=== PATIENT | female | born 1980 | race Caucasian/White ===

== ENCOUNTER 2019-03-20 14:50 | Emergency (ER) | payer MEDICARE, MEDICAID, SELFPAY ==
[2019-03-20 15:04] VITALS: BP 125/84; PULSE 72; RESP 16; TEMP 36.7; O2SAT 99
--- NOTE | 2019-03-20 15:09 | ED.GENADUL_ITS ---
Discharge Plan Disposition Patient Disposition: HOME Condition: Good Discharge Details Chief Complaint: RashLesion Clinical Impression: Tinea Primary Care Provider: PHILIPPE SPIVEY ED Provider: Obie Causey Home Meds and New Rx's Prescriptions: New clotrimazole-betamethasone [Lotrisone] 1-0.05 % cream 1 applic TP BID 14 Days Qty: 15 RF: 0 Discharge Instructions Instructions: Skin Yeast Infection (ED) Additional Instructions: Please keep the area under your breast aerated as much as possible. Apply the cream twice daily. Make sure if you are wearing a bra or strap that it is breathable. Please drink 10 to 12 cups of water per day to avoid any dehydration if you notice any worsening of your symptoms, or any new symptoms such as vomiting, diarrhea, fever, chills, shortness of breath, chest pain, numbness, weakness, or fainting , please return immediately to the emergency department for reevaluation. Please follow up with your primary care provider as soon as possible for reassessment and reevaluation. As always, it was a pleasure participating in your medical care today. Stand Alone Forms: Work Release Referrals: PHILIPPE SPIVEY [Primary Care Provider] - Medical Decision Making This is a very pleasant 38-year-old female who presents today for evaluation of rash underneath her breasts bilaterally. 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 Rashes been present for the last week. Signs and symptoms appear clinically consistent with bilateral yeast infection underneath her breast secondary to a moist environment. No concerning physical exam or historical red flags of HIV, diabetes, or other significant rash findings. Signs and symptoms are clinically consistent with a yeast infection. Because of the note ability of the rash we will prescribe a accommodation cream with both steroid and antifungal components. Recommend breathable clothing. Recommend close follow-up with PCP. Discussed lifestyle modifications. I have extensively reviewed the treatment plan and discharge instructions with the patient. I have addressed all patient concerns at this time. The patient was made aware of what symptoms to monitor for that would warrant a return to the emergency department. Discussed the plan with the patient, they demonstrate verbal understanding and agreement with our assessment and plan at this time. HPI General Date/Time Provider Initiated Documentation: 03/20/19 15:07 . HPI Narrative: This is a pleasant 38-year-old female who presents today for evaluation of rash underneath her breasts bilaterally. 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 She has noticed this rash for the last week. It is cause mild to moderate itchiness and irritation. Today she noticed a small amount of blood came into be checked out. Aside for this rash she denies any other complaints. No new medications soaps or washes. She denies any oral lesions. She denies any recent antibiotics or new medications. No other complaints at this time. Nothing improves or worsens her symptoms. She denies any history of HIV. She does not have diabetes Related Data Home Medications Medication Instructions Recorded Confirmed clotrimazole-betamethasone 1 applic TP BID 14 Days #15 gm 03/20/19 [Lotrisone] Previous Rx's Medication Instructions Recorded clotrimazole-betamethasone 1 applic TP BID 14 Days #15 gm 03/20/19 [Lotrisone] Allergies Allergy/AdvReac Type Severity Reaction Status Date / Time No Known Allergies Allergy Unverified 03/20/19 15:10 Review of Systems Review of Systems All systems reviewed & are unremarkable except as noted in HPI and below PFSH Social History Smoking/Tobacco Use Status: Never Alcohol Intake: never Drug use: Occasionally Substance use type: marijuana Do you feel safe at home: Yes Do you feel safe in your relationship?: Yes Exam Narrative Exam Narrative: 1.Const: Well-nourished, Well-developed, appearing stated age 2.Eyes: PERRL, no conjunctival injection, and symmetrical lids. 3.ENT: Atraumatic external nose and ears. Moist MM. Neck: Symmetric, trachea midline, No thyromegaly. 4.CVS: +S1/S2, No murmurs or gallops. Peripheral pulses 2+ and equal in all extremities. Brisk capillary refill in all extremities. 5.RESP: Unlabored respiratory effort. Clear to auscultation bilaterally. No wheezes rales or rhonchi 6.GI: Soft, Nontender/Nondistended, No hepatosplenomegaly. No guarding or krishna ound. 7.MSK: Normocephalic/Atraumatic, Extremities w/o deformity or ttp No cyanosis or clubbing, Normal movement of all extremities 8.Skin: Warm, mild erythema under both breasts bilaterally with notable skin irritation, notable redness that blanches well. Clinically consistent with topical yeast infection. Negative Nikolsky sign. No large vesicles or bulla. No palpable purpura. No oral lesions. No mucosal lesions. No evidence of severe cellulitis. No evidence of vaccine preventable rash. 9.Neuro: lump roller II-XII grossly intact. Sensation grossly intact, no focal neurologic deficits. 10.Psych: (AAO) x3. Appropriate mood and affect
== END 2019-03-20 15:23 | disposition home or self-care (01) ==
LOC: ER 15:59
PROVIDERS: Emergency Provider Student in an Organized Health Care Education/Training Program; PCP Nurse Practitioner Family
DX: B35.4 Tinea corporis (principal)
CPT/HCPCS: 99283

== ENCOUNTER 2019-08-10 14:46 | Emergency (ER) | payer MEDICARE, MEDICAID, SELFPAY ==
[2019-08-10] VITALS (10 sets, daily range): BP systolic 120–147; BP diastolic 91–92; PULSE 76–89; RESP 4–31; TEMP 36.6; O2SAT 95–97
--- NOTE | 2019-08-10 15:02 | ED.GENADUL_ITS ---
Discharge Plan Disposition Patient Disposition: HOME Condition: Stable Discharge Details Chief Complaint: Chest Pain Clinical Impression: Bronchitis Primary Care Provider: Nichelle Bennett ED Provider: Manuel Marte Home Meds and New Rx's Prescriptions: New azithromycin 250 mg tablet See Rx Instructions .ROUTE .COMPLEX Qty: 6 RF: 0 Discharge Instructions Instructions: Acute Bronchitis (ED) Additional Instructions: Small, frequent sips of fluids to maintain hydration. Take antibiotics as prescribed. You may liberalize potassium containing foods in the diet such as bananas, strawberries, tree nuts like cashews or almonds. Return to the emergency department for any acute concerns. Medical Decision Making 38-year-old female presents from home complaining of 7 days of cough with congestion, developed left anterior chest discomfort this morning. It is reproducible on exam. States his been under a great deal of stress due to her 's incarceration. Her vital signs are within normal limits. Differential diagnosis is broad, and the patient placed on a athletic monitor, screening laboratories, EKG, chest x- ray obtained. Patient is noted to have potassium of 3.1 and mild anion gap acidosis. I attribute this to her decreased p.o. intake. She is given supplemental potassium in the ED. her troponin and d-dimer are within normal limits, chest x- ray is unremarkable for acute process and no consolidation. She has had a persistent cough, she certainly may have a component of bronchitis now treated with a course of azithromycin. She is stable and appropriate for discharge home at this time. ECG Data Attestation: I personally reviewed and interpreted this ECG (s) as follows: Interpretation: Normal sinus rhythm, rate of 72, the QRS is narrow. HPI General Mode of arrival: ambulatory . Date/Time Provider Initiated Documentation: 08/10/19 14:47 . Limitations to Documentation: no limitations . Information obtained by: patient . History of Present Illness 38 year old F presents to the emergency department with the chief complaint of Left chest discomfort, cough, stressed out, described as mild, and is localized to the chest and left. Patient reports no radiation. Patient started experiencing this hour(s) and it has been constant. No relieving factors improve symptom(s), No exacerbating factors reported . Patient notes cough and loss of appetite. Patient did receive the following treatments prior to arrival, none Related Data Home Medications Medication Instructions Recorded Confirmed azithromycin See Rx Instructions .ROUTE 08/10/19 .COMPLEX #6 tab Previous Rx's Medication Instructions Recorded azithromycin See Rx Instructions .ROUTE 08/10/19 .COMPLEX #6 tab Allergies Allergy/AdvReac Type Severity Reaction Status Date / Time No Known Allergies Allergy Unverified 03/20/19 15:10 General Stated Complaint: Chest Pain YEHUDA: 2 Review of Systems Narrative: No recent travel, denies lower extremity pain or swelling, endorses significant stress due to her being in longterm. [facility] Social History Smoking/Tobacco Use Status: Never Alcohol Intake: current Alcohol Intake frequency: a few times a week Drug use: Occasionally Substance use type: marijuana Do you feel safe at home: Yes Do you feel safe in your relationship?: Yes Exam Narrative Exam Narrative: GEN: awake, alert, oriented 3. Pleasant, well groomed, interactive. HEAD: Normocephalic, atraumatic ENT: Mucous membranes moist, oropharynx unremarkable, External ear exam unremarkable EYES: PERRL, EOMI NECK: Full ROM, no ADRIANNE, no menigismus CHEST/RESP: Left anterior chest tender to palpation, no rash, clear to auscultation bilateral, no wheeze/rhonchi/rales CARDIOVASCULAR: RRR, no murmur, rub chani. 2+ Rad pulse bilateral ABDOMEN: Soft, nontender, no mass. +Bowel sounds EXT: Full ROM, no edema, no rash Neuro: Grossly normal neurologic exam, conversant, interactive. Psych: Speech fluent, thoughts congruent, affect anxious Course Vital Signs Vital signs: Vital Signs Temperature 36.6 C 08/10/19 14:51 Pulse 82 08/10/19 14:51 Respiratory Rate 31 H 08/10/19 14:51 Blood Pressure 147/92 H 08/10/19 14:51 Pulse Oximetry 97 08/10/19 14:51 Temperature 36.6 C 08/10/19 14:51 Temperature Source Skin 08/10/19 14:51 Pulse 82 08/10/19 14:51 Respiratory Rate 31 H 08/10/19 14:51 Blood Pressure 147/92 H 08/10/19 14:51 Blood Pressure Position Sitting 08/10/19 14:51 Pulse Oximetry 97 08/10/19 14:51 Oxygen Delivery Method Room Air 08/10/19 14:51 Oxygen Flow Rate 0 08/10/19 14:51 Pain Level 4 08/10/19 14:51
[2019-08-10 15:15] LABS: Abs Immature Grans 0.01 k/cumm (0.0-0.09); Absolute Basophil Count 0.02 k/cumm (0.0-0.2); Absolute Eosinophil Count 0.12 k/cumm (0.0-0.7); Absolute Lymphocyte Count 1.69 k/cumm (1.2-3.4); Absolute Monocyte Count 0.63 k/cumm (0.11-0.7); Absolute Neutrophil Count 4.25 k/cumm (1.2-6.7); Basophils % 0.3; Eosinophils % 1.8; HCT 37.8 % (36.0-46.0); HGB 13.8 g/dL (12.0-15.5); Immature Grans % 0.1 %; Lymphocytes % 25.1; Mean Corp. HGB Concentration 36.5 g/dL (32.0-36.0); Mean Corpuscular Hemoglobin 32.3 pg (27.0-33.0); Mean Corpuscular Volume 88.5 fL (80-95); Mean Platelet Volume 9.2 fL (8.0-11.0); Monocytes % 9.4; Neutrophils % 63.3; Platelet Count 368 x1000/uL (130-400); RBC 4.27 m/cumm (4.00-5.20); White Blood Cell Count 6.72 k/cumm (4.4-10.8)
--- NOTE | 2019-08-10 15:23 | DI.RAD_ITS ---
EXAM: XR CHEST 2V PA LATERAL CLINICAL HISTORY: Cough and left chest pain TECHNIQUE: COMPARISON: No exams were available for comparison FINDINGS: Note is made of Cullen rods of the thoracolumbar region. Cardiac size is within normal limits. The lungs are clear and well expanded. No pleural effusion or pneumothorax. IMPRESSION: No evidence of acute intrapulmonary process.
[2019-08-10 15:31] LABS: ALT 30 U/L (14-59); AST 25 U/L (15-37); Albumin 3.8 g/dL (3.4-5.0); Alkaline Phosphatase 70 U/L (46-116); Anion Gap 16.4 mmol/L (3-11); BUN 4 mg/dL (7-18); Bilirubin, Total 0.9 mg/dL (0.2-1.0); CO2 19.6 mmol/L (21.0-32.0); CREATININE 0.64 mg/dL (0.55-1.02); Chloride 105 mmol/L (98-107); Glucose 101 mg/dL (74-106); Magnesium 2.2 mg/dL (1.8-2.4); Potassium 3.1 mmol/L (3.5-5.1); Sodium 141 mmol/L (136-145); Total Protein 8.1 g/dL (6.4-8.2)
[2019-08-10 15:48] LABS: Troponin I < 0.05 ng/Ml (<0.06)
[2019-08-10] MEDS: Normal Saline Flush 10 ML SYR IVP (15:50)
[2019-08-10 15:51] LABS: D-Dimer 397 ng/mlFEU (<500)
[2019-08-10] MEDS: Potassium Chloride 20 MEQ TABCR PO (16:06)
== END 2019-08-10 16:29 | disposition home or self-care (01) ==
PROVIDERS: Emergency Provider Emergency Medicine; PCP Nurse Practitioner Family
DX: J20.9 Acute bronchitis, unspecified (principal); E87.6 Hypokalemia; Z63.32 Other absence of family member
CPT/HCPCS: 36415; 80053; 93005; 99285; 71046; 83735; 84484; 85025; 85379; 93010; 99284

== ENCOUNTER 2020-05-04 14:35 | Emergency (ER) | payer MEDICARE, MEDICAID, SELFPAY ==
[2020-05-04] VITALS (27 sets, daily range): BP systolic 120–142; BP diastolic 68–99; PULSE 58–85; RESP 17–29; TEMP 36.5–36.7; O2SAT 97–100
--- NOTE | 2020-05-04 14:30 | RT.EKG_ITS ---
APPROVED REPORT Exam: Resting ECG Patient Location: E HR:73 bpm ECG Measurements Heart Rate 73 AXIS CO 145 P 25 QRSd 81 QRS 2 QT 416 T 26 QTc 458 Conclusion Sinus rhythm...normal P axis, V-rate 60- 99 I have reviewed and interpreted ECG and agree with software generated interpretation.
--- NOTE | 2020-05-04 14:38 | ED.GENADUL_ITS ---
Discharge Plan Disposition Patient Disposition: HOME Condition: Stable Discharge Details Clinical Impression: Chest wall pain, Anxiety Primary Care Provider: Nichelle Bennett ED Provider: Tesha Hickman Home Meds and New Rx's Prescriptions: Continued albuterol sulfate 90 mcg/actuation HFA aerosol inhaler 2 puff inhalation Q6H PRN PRNRF: 0 aripiprazole [Abilify] 2 mg tablet 2 mg PO HS RF: 0 Discharge Instructions Instructions: Anxiety (ED), Chest Wall Pain (ED) Additional Instructions: Drink plenty of fluids and get plenty of rest. Alternate tylenol and motrin as needed and directed for pain. You can continue to use [id number] Lidoderm patches as needed and directed for pain. Follow-up with your primary care doctor in 1 week. Return to the emergency department with any worsening or new concerning symptoms. Discharge Data Discharge Date/Time-TO BE ENTERED AT DEPARTURE: 05/04/20 18:34 Discharge Physician: Tesha Hickman Medical Decision Making 2058 -- 39-year-old female with a history of anxiety and depression presents for left-sided pleuritic chest pain that started while driving 2 hours ago. Patient appears significantly anxious. Pupils dilated. She denies any alcohol or drug use and is hemodynamically stable. EKG notes a rate of 73, sinus with no acute ST-T wave ischemic changes. She has significant left-sided chest wall tenderness. No evidence of rash, cellulitis or trauma. Lungs are clear. Suspect most likely anxiety versus chest wall strain. Due to early component, will do a cardiac work-up and CT chest to rule out PE. Patient drove herself here so we will hold on Ativan. Will place Lidoderm patch and give IV Toradol and reassess. 1630 -- Labs and imaging reviewed and unremarkable. Patient remains hemodynamically stable. Will obtain a repeat troponin and EKG. 1800 -- A repeat troponin negative. A repeat EKG unchanged. Patient reassessed and denies any symptoms at this time and is requesting to go home. Advised to follow up with the primary care doctor for re-evaluation. Usual and customary return precautions given prior to discharge. Medical Records Medical records reviewed: Yes I reviewed the patient's medical records. Imaging Data Radiologic Study: Radiologist's impression: CT Angiography Chest With Contrast Exam date and time: 05/04/2020 3:21 PM Age: 39 years old Clinical indication: Chest pain TECHNIQUE: Imaging protocol: Computed tomographic angiography of the chest with intravenous contrast. 3D rendering (Not supervised by radiologist): MIP and/or 3D reconstructed images were created by the technologist. Contrast material: OMNIPAQUE 350; Contrast volume: 100 ml; Contrast route: IV; COMPARISON: CR XR CHEST 2V PA LATERAL 08/10/2019 3:23 PM FINDINGS: Pulmonary arteries: Normal. No pulmonary emboli. Aorta: Unremarkable. No aortic aneurysm. No aortic dissection. Lungs: There is a pleural based left lower lobe nodule series 6, image 301 measuring 4 mm. No focal infiltrates. Pleural space: Unremarkable. No pneumothorax. No pleural effusion. Heart: Unremarkable. No cardiomegaly. No pericardial effusion. Lymph nodes: Unremarkable. No enlarged lymph nodes. Liver: Probable mild hepatomegaly, incompletely imaged. Bones/joints: There is some beam hardening artifact from posterior spinal rods originating at the upper thoracic level. Soft tissues: Unremarkable. Other findings: Respiratory motion noted. IMPRESSION: No evidence for pulmonary embolus. Lab Data Lab results reviewed: Yes I reviewed the patient's lab results. Labs: Laboratory Tests Range/Units 05/04/20 05/04/20 05/04/20 14:45 14:45 14:45 WBC (4.4-10.8) 10^3/uL 10.05 RBC (3.93-5.22) 10^6/uL 4.54 Hgb (11.2-15.7) g/dL 13.5 Hct (36.0-46.0) % 39.9 MCV (80-95) fL 87.9 MCH (27.0-33.0) pg 29.7 MCHC (32.0-36.0) % 33.8 RDW (11.7-14.6) % 12.0 Plt Count (130-400) 10^3/uL 317 MPV (8.0-11.0) fL 10.4 Immature Gran % 0.4 Neutrophils % 71.4 Lymphocytes % 21.2 Monocytes % 5.4 Eosinophils % 1.1 Basophils % 0.5 Nucleated RBC % % 0 Absolute Neutrophils (1.2-6.7) 10^3/uL 7.18 H Absolute Lymphocytes (1.2-3.4) 10^3/uL 2.13 Absolute Monocytes (0.1-0.8) 10^3/uL 0.54 Absolute Eosinophils (0.0-0.7) 10^3/uL 0.11 Absolute Basophils (0.0-0.2) 10^3/uL 0.05 PT (9.3-11.0) sec 10.1 INR (0.9-1.1) 1.0 APTT (21.0-31.4) sec 24.1 Sodium (136-145) mmol/L 139 Potassium (3.5-5.1) mmol/L 3.7 Chloride (98-107) mmol/L 105 Carbon Dioxide (21.0-32.0) mmol/L 18.8 L Anion Gap (3-11) mmol/L 15.2 H BUN (7-18) mg/dL 7 Creatinine (0.55-1.02) mg/dL 0.98 Estimated GFR/1.73 m2 (mL/min/1.73m2) >= 60.00 Glucose (74-106) mg/dL 99 Calcium (8.5-10.1) mg/dL 9.2 Magnesium (1.8-2.4) mg/dL 2.3 Total Bilirubin (0.2-1.0) mg/dL 0.6 AST (15-37) U/L 17 ALT (14-59) U/L 21 Alkaline Phosphatase (46-116) U/L 73 Troponin I (<0.06) ng/mL < 0.05 Total Protein (6.4-8.2) g/dL 7.9 Albumin (3.4-5.0) g/dL 3.8 Range/Units 05/04/20 17:45 WBC (4.4-10.8) 10^3/uL RBC (3.93-5.22) 10^6/uL Hgb (11.2-15.7) g/dL Hct (36.0-46.0) % MCV (80-95) fL MCH (27.0-33.0) pg MCHC (32.0-36.0) % RDW (11.7-14.6) % Plt Count (130-400) 10^3/uL MPV (8.0-11.0) fL Immature Gran % Neutrophils % Lymphocytes % Monocytes % Eosinophils % Basophils % Nucleated RBC % % Absolute Neutrophils (1.2-6.7) 10^3/uL Absolute Lymphocytes (1.2-3.4) 10^3/uL Absolute Monocytes (0.1-0.8) 10^3/uL Absolute Eosinophils (0.0-0.7) 10^3/uL Absolute Basophils (0.0-0.2) 10^3/uL PT (9.3-11.0) sec INR (0.9-1.1) APTT (21.0-31.4) sec Sodium (136-145) mmol/L Potassium (3.5-5.1) mmol/L Chloride (98-107) mmol/L Carbon Dioxide (21.0-32.0) mmol/L Anion Gap (3-11) mmol/L BUN (7-18) mg/dL Creatinine (0.55-1.02) mg/dL Estimated GFR/1.73 m2 (mL/min/1.73m2) Glucose (74-106) mg/dL Calcium (8.5-10.1) mg/dL Magnesium (1.8-2.4) mg/dL Total Bilirubin (0.2-1.0) mg/dL AST (15-37) U/L ALT (14-59) U/L Alkaline Phosphatase (46-116) U/L Troponin I (<0.06) ng/mL < 0.05 Total Protein (6.4-8.2) g/dL Albumin (3.4-5.0) g/dL ECG Data Attestation: I personally reviewed and interpreted this ECG (s) as follows: Interpretation: #1 -- rate of 73, sinus, no acute ST elevation or depression. MA 145. QRS 81. QTc 456. #2 -- rate of 64, sinus, no acute ST elevation or depression. MA 146. QRS 80. QTc 456. HPI General Mode of arrival: ambulatory . Date/Time Provider Initiated Documentation: 05/04/20 14:37 . Limitations to Documentation: no limitations . Information obtained by: patient . HPI Narrative: Patient is a 39-year-old female with a history of anxiety and depression who presents with left sided chest pain that occurred while she was driving 2 hours ago. 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 She states she stopped it because she did not feel that it was working but wants to now restart it. She states she has been taking for the past few months. She states her chest pain is currently 2/10 and worse with deep breath. She denies any injury, fever, cough, nausea, vomiting, dizziness or shortness of breath. She denies any known injury, recent travel, recent surgery, leg pain or swelling or known sick contacts. She denies any alcohol or drug use. Related Data Home Medications Medication Instructions Recorded Confirmed albuterol sulfate 2 puff INHALATION Q6H PRN PRN 05/04/20 05/04/20 aripiprazole [Abilify] 2 mg PO HS 05/04/20 05/04/20 Allergies Allergy/AdvReac Type Severity Reaction Status Date / Time No Known Allergies Allergy Unverified 05/04/20 14:49 General YEHUDA: 2 Review of Systems All systems reviewed & are unremarkable except as noted in HPI and below Constitutional Constitutional: Reports as per HPI, Denies chills and Denies fever(s) Eyes Eyes: Denies blurry vision ENT Ears, Nose, Mouth, and Throat: Denies dizziness, Denies sore throat and Denies throat swelling Cardiovascular Cardiovascular: Reports chest pain and Denies dyspnea Respiratory Respiratory: Denies cough and Denies dyspnea Gastrointestinal Gastrointestinal: Denies abdominal pain, Denies diarrhea and Denies vomiting Genitourinary Genitourinary: Denies hematuria and Denies dysuria Musculoskeletal Musculoskeletal: Denies back pain and Denies numbness Integumentary/Breasts Skin/Breast: Denies lesions and Denies rash Neurologic Neurologic: Denies dizziness, Denies localized weakness and Denies numbness Allergic/Immunologic Allergic/Immunologic: Denies throat swelling [facility] Medical History (Updated 05/04/20 @ 18:20 by Tesha Hickman DO) Anxiety Bipolar disorder Surgical History (Updated 05/04/20 @ 20:52 by Tesha Hickman DO) No significant past surgical history Social History Smoking/Tobacco Use Status: Never Alcohol Intake: never Drug use: Occasionally Substance use type: marijuana Do you feel safe at home: Yes Do you feel safe in your relationship?: Yes Exam Const General: cooperative, healthy appearing and no acute distress HENMT Head: normal to inspection Face and sinus: normal facial exam Eyes General: appearance normal, both eyes and all related structures Pupils: PERRL and dilated bilaterally EOM: EOM intact bilaterally Neck Neck: normal visual inspection and No submandibular swelling Lymphatic: no lymphadenopathy noted Chest Chest: normal inspection of the chest and tenderness (L sided chest tenderness) Resp Effort & Inspection: normal respiratory effort and able to speak in complete sentences Auscultation: clear to auscultation bilaterally Cardio Rate: regular rate Rhythm: regular rhythm GI Inspection: normal to inspection Palpation: soft, not firm, not rigid and nontender Auscultation: normal bowel sounds Skin General skin exam: no rashes or lesions noted Neuro General: patient alert, patient awake and patient oriented x3 Cognition: normal cognition Speech: speech normal Motor: muscle tone normal throughout Sensory Exam: no sensory deficits noted Extrem General: normal to inspection, full ROM, capillary refill normal, no calf tenderness bilaterally and no edema Psych Appearance: grossly normal Mental Status: mental status grossly normal Speech and Movement: speech and movement normal Affect: normal affect
[2020-05-04 15:05] LABS: Abs Immature Grans 0.04 10^3/uL (0.0-0.06); Absolute Basophil Count 0.05 10^3/uL (0.0-0.2); Absolute Eosinophil Count 0.11 10^3/uL (0.0-0.7); Absolute Lymphocyte Count 2.13 10^3/uL (1.2-3.4); Absolute Monocyte Count 0.54 10^3/uL (0.1-0.8); Absolute Neutrophil Count 7.18 10^3/uL (1.2-6.7); Basophils % 0.5; Eosinophils % 1.1; HCT 39.9 % (36.0-46.0); HGB 13.5 g/dL (11.2-15.7); Immature Grans % 0.4; Lymphocytes % 21.2; MCH 29.7 pg (27.0-33.0); MCHC 33.8 % (32.0-36.0); MCV 87.9 fL (80-95); MPV 10.4 fL (8.0-11.0); Monocytes % 5.4; Neutrophils % 71.4; Nucleated RBC 0 %; Platelet Count 317 10^3/uL (130-400); RBC 4.54 10^6/uL (3.93-5.22); RDW-SD 38.7 fL; WBC 10.05 10^3/uL (4.4-10.8)
--- NOTE | 2020-05-04 15:15 | DI.CT_ITS ---
EXAM: CT CHEST PE CTA CLINICAL HISTORY: pleuritic L chest pain, r/o PE. TECHNIQUE: Imaging Protocol: Axial CT angiography was performed with multi-slice acquisition and mu lti-planar and/or 3D reconstructions. CONTRAST MATERIAL: Intravenous: Omnipaque 350 Contrast volume:100 mL COMPARISON: CR XR CHEST 2V PA LATERAL from 08/10/2019 FINDINGS: The examination is limited due to patient motion artifact. Pulmonary Arteries: No evidence of filling defect to suggest pulmonary emboli. Tracheobronchial tree: Patent where visualized. Mediastinum and Loretta: No dominant adenopathy or fluid collection. Small hiatal hernia. Pulmonary parenchyma: No consolidation or dominant measurable mass. No architectural distortion. Ther e is a 3 mm pleural based pulmonary nodule in the left lower lobe. (Series 6, image 301). Pleura: No effusion or pneumothorax. Heart: The heart is not dilated. No coronary artery calcifications are seen. No significant pericardi al effusion. Aorta: Thoracic aorta non-dilated. No dissection. Upper abdomen: Unremarkable. Bones: Cullen rods in place which causes beam hardening artifact. Right convex thoracic scoliosi s. Soft tissues: Unremarkable. IMPRESSION: No evidence of pulmonary embolism, thoracic aortic dissection or aneurysm. RADIATION DOSE DELIVERED: 869mGy.cm Total DLP DATA REPOSITORY: All CT scans at this facility are submitted to the National Radiology Data Registry (NRDR) Dose Index Registry (DIR) with the [employer] (ACR). RADIATION OPTIMIZATION: All CT scans at this facility use at least one of these dose optimization te chniques: automated exposure control; mA and/or kV adjustment per patient size (includes targeted exa ms where dose is matched to clinical indication); or iterative reconstruction.
[2020-05-04 15:18] LABS: PTT Activated 24.1 sec (21.0-31.4); Prothrombin Time 10.1 sec (9.3-11.0)
[2020-05-04 15:20] LABS: ALT 21 U/L (14-59); AST 17 U/L (15-37); Albumin 3.8 g/dL (3.4-5.0); Alkaline Phosphatase 73 U/L (46-116); Anion Gap 15.2 mmol/L (3-11); BUN 7 mg/dL (7-18); Bilirubin, Total 0.6 mg/dL (0.2-1.0); CO2 18.8 mmol/L (21.0-32.0); CREATININE 0.98 mg/dL (0.55-1.02); Calcium 9.2 mg/dL (8.5-10.1); Chloride 105 mmol/L (98-107); Glucose 99 mg/dL (74-106); Magnesium 2.3 mg/dL (1.8-2.4); Potassium 3.7 mmol/L (3.5-5.1); Sodium 139 mmol/L (136-145); Total Protein 7.9 g/dL (6.4-8.2)
[2020-05-04 15:23] LABS: Troponin I < 0.05 ng/mL (<0.06)
[2020-05-04] MEDS: Ketorolac 30 MG/ML VIAL IVP (15:30)
[2020-05-04] MEDS: Normal Saline 1,000 ML 1000 ML IV (15:31)
[2020-05-04] MEDS: Lidocaine 5% Patch 1 PATCH TP (15:31)
[2020-05-04] MEDS: Omnipaque 350 MG/ML 100 ML BTL IJ (16:14)
--- NOTE | 2020-05-04 16:49 | DI.VRAD_ITS ---
PROCEDURE INFORMATION: Exam: CT Angiography Chest With Contrast Exam date and time: 05/04/2020 3:21 PM Age: 39 years old Clinical indication: Chest pain TECHNIQUE: Imaging protocol: Computed tomographic angiography of the chest with intravenous contrast. 3D rendering (Not supervised by radiologist): MIP and/or 3D reconstructed images were created by the technologist. Contrast material: OMNIPAQUE 350; Contrast volume: 100 ml; Contrast route: IV; COMPARISON: CR XR CHEST 2V PA LATERAL 08/10/2019 3:23 PM FINDINGS: Pulmonary arteries: Normal. No pulmonary emboli. Aorta: Unremarkable. No aortic aneurysm. No aortic dissection. Lungs: There is a pleural based left lower lobe nodule series 6, image 301 measuring 4 mm. No focal infiltrates. Pleural space: Unremarkable. No pneumothorax. No pleural effusion. Heart: Unremarkable. No cardiomegaly. No pericardial effusion. Lymph nodes: Unremarkable. No enlarged lymph nodes. Liver: Probable mild hepatomegaly, incompletely imaged. Bones/joints: There is some beam hardening artifact from posterior spinal rods originating at the upper thoracic level. Soft tissues: Unremarkable. Other findings: Respiratory motion noted. IMPRESSION: No evidence for pulmonary embolus. Dictated and Authenticated by: Britt Henderson MD. Ordering:PATRICIA Parkinson MD
--- NOTE | 2020-05-04 17:15 | RT.EKG_ITS ---
APPROVED REPORT Exam: Resting ECG Patient Location: E HR:66 bpm ECG Measurements Heart Rate 66 AXIS ID 154 P 16 QRSd 78 QRS 22 QT 439 T 27 QTc 460 Conclusion Incomplete analysis due to missing data in precordial lead(s) Sinus rhythm...normal P axis, V-rate 60- 99
--- NOTE | 2020-05-04 17:45 | RT.EKG_ITS ---
APPROVED REPORT Exam: Resting ECG Patient Location: E HR:64 bpm ECG Measurements Heart Rate 64 AXIS NE 146 P 33 QRSd 80 QRS 19 QT 441 T 30 QTc 456 Conclusion Sinus rhythm...normal P axis, V-rate 60- 99. I have reviewed and interpreted ECG and agree with software generated interpretation.
[2020-05-04 18:07] LABS: Troponin I < 0.05 ng/mL (<0.06)
== END 2020-05-04 18:34 | disposition home or self-care (01) ==
PROVIDERS: Emergency Provider Physician Assistant; PCP Nurse Practitioner Family
DX: R07.81 Pleurodynia (principal); F41.8 Other specified anxiety disorders
CPT/HCPCS: 36415; 71275; 80053; 81025; 93005; 96361; 96374; 99285; 83735; 84484; 85025; 85610; 85730; 93010; J1885; J3490